=== PATIENT | female | born 2000 | race Caucasian/White ===

== ENCOUNTER 2023-04-15 11:39 | Emergency (ER) | payer SELFPAY ==
--- NOTE | ~2023-04-15 | CT_ITS ---
EXAMINATION: CT abdomen pelvis w con DATE: 04/15/2023 13:28 INDICATION: Right-sided abdominal pain TECHNIQUE: Computed tomography (CT) of the abdomen and pelvis was performed with 100 mL Omnipaque-350 intravenous contrast. Automated exposure control and iterative reconstruction technique were employe d. The dose-length product was 247.36 mGy-cm. COMPARISON: None FINDINGS: Visualized lower lungs are clear. Heart size is normal. No pericardial or pleural effusion. Liver, ga llbladder, spleen, pancreas, bilateral adrenal glands and kidneys are normal. Couple tiny likely low- attenuation renal cysts at the lower pole of the left kidney the larger measuring 5 mm which remains too small to definitively characterize. Bowels including the appendix are normal. Bladder, uterus and left adnexa are unremarkable. There is a 2.1 cm likely corpus luteum cyst in the right ovary with ty pical crenelated appearing peripheral enhancing rim. Small amount of likely physiologic free fluid in the pelvis. No abscess or free intraperitoneal gas. No pathologically enlarged abdominal or pelvic l ymphadenopathy. Bones are unremarkable. IMPRESSION: 1. 2.1 cm right ovarian corpus luteum cyst and small mild likely physiologic free fluid in the cul-de -sac. No other acute intra-abdominal/pelvic process. Reviewed, dictated and finalized at location A. IMPRESSION: 1. 2.1 cm right ovarian corpus luteum cyst and small mild likely physiologic fr ee fluid in the cul-de-sac. No other acute intra-abdominal/pelvic process.
--- NOTE | ~2023-04-15 | US_ITS ---
US abdomen limited INDICATION: Abdomen pain PROCEDURE: Realtime right upper abdominal ultrasound. COMPARISON: No prior studies for comparison. FINDINGS: The pancreas is normal without focal mass or pancreatic ductal dilation. Liver echotexture is normal without focal mass or intrahepatic biliary dilatation. There is normal directional flow i n the portal vein. The gallbladder is normal without stones, gallbladder wall thickening or pericholecystic fluid. Comm on bile duct measures 3 mm. No sonographic Aviles's sign. IMPRESSION: 1: Normal limited abdominal ultrasound. Reviewed, dictated and finalized at location L.
[2023-04-15 11:45] VITALS: BP 124/88; PULSE 75; RESP 16; TEMP 36.6; O2SAT 100
--- NOTE | 2023-04-15 11:54 | ED.ABDPAIN ---
HPI - Abdominal Pain General Chief Complaint: Abdominal Pain Stated Complaint: RLQ ABD PAIN N/V/X2D Time Seen by Provider: 04/15/23 11:50 History of Present Illness HPI narrative: Patient is a 22-year-old female with history of cyclic vomiting syndrome, ovarian cysts here with abdominal pain. Patient states that abdominal pain is right-sided and began yesterday. She notes that is waxing and waning in severity associated with nausea and vomiting. She also endorses subjective fever at home, did not check her temperature. She is additionally had some decreased appetite. No prior abdominal surgeries in the past. She has not been taking anything at home for her symptoms. No sick contacts. Normal bowel movements. She does not believe she could be . Denies any urinary symptoms, vaginal discharge or bleeding. Related Data Allergies Allergy/AdvReac Type Severity Reaction Status Date / Time No Known Allergies Allergy Verified 04/15/23 11:56 Review of Systems Review of Systems: CONSTITUTIONAL: fever, chills, denies sweats. EYES: Denies visual changes, redness, or discharge. ENT: Denies rhinorrhea, congestion, sore throat, or otalgia. CARDIOVASCULAR: Denies chest pain, palpitations, or edema. RESPIRATORY: Denies cough or dyspnea. GASTROINTESTINAL: abdominal pain, nausea and vomiting, No diarrhea. GENITOURINARY: Denies dysuria or hematuria. SKIN: Denies rash or itching. MUSCULOSKELETAL: Denies back pain, joint pain, or myalgia. NEUROLOGIC: Denies headache, numbness, or weakness. PSYCHIATRIC: Denies anxiety or depression. Exam Narrative: GENERAL: Well-appearing, well-nourished, and in no acute distress. HEAD: Normocephalic, atraumatic. EYES: PERRLA and EOMI. ENT: Nares clear. Mucous membranes moist. NECK: Supple. CHEST: Clear to auscultation. No respiratory distress. HEART: Regular rate and rhythm. Normal peripheral pulses. ABDOMEN: Soft, tender in the RUQ, no rebound or guarding EXTREMITIES: Normal range of motion. No edema. SKIN: Warm, dry, no rash. NEURO: No focal deficits. Alert and oriented x3. PSYCH: Normal mood and affect. Course Course Emergency Course: Chart review performed. Patient here with abdominal pain per nursing note. Triage vitals normal. No prior visits here. Patient seen evaluated, here with abdominal pain. Given location of pain differentials include biliary disease, hepatitis, pancreatitis, Gastritis, UTI, pyelonephritis. Will do basic labs, morphine and Zofran for symptoms, IV fluids. Advised to remain NPO. RUQ ultrasound ordered. Lab work and imaging reviewed. No leukocytosis, electrolytes normal, normal renal function, RUQ ultrasound negative. Given significant pain, will do CT at this point to look for potential source of pain. CT shows right corpus luteal cyst with small physiologic free fluid in cul-de-sac. UA negative for UTI. Will reevaluate. patient feeling much better at this time, pain is resolved. The results of pertinent diagnostic studies and exam findings were discussed. The patient?s provisional diagnosis and plan of care were discussed with the patient and present family. The patient and/or present family expressed understanding of the diagnosis and plan. The nurse was instructed to provide written instructions and appropriate follow-up information. The patient understands their need and responsibility to obtain additional follow-up as instructed. The risks of medications administered and prescribed were discussed with the patient and family present. Vital Signs Vital signs: Vital Signs Temperature 98 F 04/15/23 11:45 Pulse Rate 75 04/15/23 11:45 Respiratory Rate 16 04/15/23 11:45 Blood Pressure 124/88 04/15/23 11:45 Pulse Oximetry 100 04/15/23 11:45 Oxygen Delivery Room Air 04/15/23 11:45 Temperature 98 F 04/15/23 11:45 Pulse Rate 72 04/15/23 14:21 Respiratory Rate 15 04/15/23 14:21 Blood Pressure 110/75 04/15/23 14:21 P
[2023-04-15 12:12] LABS: Basophils Percent Auto 0.4 % (0.2-1.2); Eosinophils Percent Auto 0.1 % (0-4.4); Hematocrit 40.5 % (37.0-47.0); Hemoglobin 13.4 g/dL (12.0-15.0); Immature Granulocyte Absolute 0.02 K/mm3 (0.00-0.031); Immature Granulocyte Percent A 0.3 % (0-0.5); Lymphocytes Absolute Auto 1.73 K/mm3 (0.9-3.2); Lymphocytes Percent Auto 23.4 % (18.3-44.2); Mean Corpuscular HGB Conc 33.1 g/dl (32-36); Mean Corpuscular Hemoglobin 29.3 pg (26-34); Mean Corpuscular Volume 88.6 fl (80-100); Mean Platelet Volume 9.5 fl (7.4-10.4); Monocytes Absolute Auto 0.5 K/mm3 (0.1-0.6); Monocytes Percent Auto 6.2 % (2.6-8.5); Neutrophils Absolute Auto 5.1 K/mm3 (1.3-6.7); Neutrophils Percent Auto 69.6 % (45.5-73.1); Platelet Count Result 296 k/mm3 (150-375); Red Blood Count 4.57 M/mm3 (4.2-5.4); Red Cell Distribution Width 12.2 % (11.5-14.5); White Blood Count 7.4 K/mm3 (4.5-10.0)
[2023-04-15 12:22] LABS: Alanine Aminotransferase 21 U/L (6-35); Albumin Level 5.1 g/dL (3.5-5.1); Alkaline Phosphatase 68 U/L (38-126); Anion Gap 8 mmol/L (8-16); Aspartate Amino Transferase 32 U/L (14-36); Bilirubin,Total 0.7 mg/dL (0.2-1.3); Blood Urea Nitrogen 11 mg/dL (7-17); Calcium 9.7 mg/dL (8.4-10.2); Carbon Dioxide 28 mmol/L (22-30); Chloride 102 mmol/L (98-107); Estimated CRCL calculation 103 ml/min; Estimated Glomerular Filt Rate > 60; Glucose 95 mg/dL (65-110); Lipase 212 U/L (23-300); Magnesium 1.8 mg/dL (1.6-2.3); Potassium 3.7 mmol/L (3.4-5.0); Sodium 138 mmol/L (137-145)
[2023-04-15] MEDS: SODIUM CHLORIDE 0.9% IV 1,000 ML 999 ML IV CONT (12:27)
[2023-04-15] MEDS: MORPHINE SULFATE (*CRX) 4 MG/ML INJ IV PUSH (12:28)
[2023-04-15] MEDS: PANTOPRAZOLE SODIUM IV 40 MG VIAL IV PUSH (12:28)
[2023-04-15] MEDS: ONDANSETRON INJ 4 MG/2 ML VIAL IV PUSH (12:28)
[2023-04-15 12:46] LABS: Appearance Urine Cloudy (Clear); Bilirubin Urine Negative (Negative); Blood Urine Negative (Negative); Color Urine Yellow (Yellow); Glucose Urine UA Negative (Negative); Ketones Urine 2+ mg/dL (Negative); Leukocyte Esterase Ur Negative LEU/UL (Negative); Nitrate Urine Negative (Negative); Protein Urine Negative (Negative); pH Urine 8.5 (5.0-9.0)
[2023-04-15 12:47] LABS: Add Urine Microscopic? YES; Bacteria Urine 2+ /hpf; Squamous Epithelial Cell Urine Many /hpf (Few)
[2023-04-15 12:48] LABS: Amorphous Sediment Urine Moderate
[2023-04-15 14:21] VITALS: BP 110/75; PULSE 72; RESP 15; O2SAT 99
== END 2023-04-15 14:22 | disposition home or self-care (01) ==
PROVIDERS: Emergency Medicine; Emergency Provider Student in an Organized Health Care Education/Training Program
DX: N83.11 Corpus luteum cyst of right ovary (principal); R10.11 Right upper quadrant pain
CPT/HCPCS: 36415; 74177; 76705; 80053; 81001; 81025; 83690; 83735; 85025; 96361; 96374; 96375; 99284; C9113; J2270; J2405; J7030; Q9967

== ENCOUNTER 2024-07-21 22:11 | Emergency (ER) | payer SELFPAY | END 2024-07-22 06:56 | disposition left against medical advice (07) | DX: R10.9 Unspecified abdominal pain (principal) | CPT/HCPCS: 99199 ==